=== PATIENT | female | born 1985 | race Caucasian/White ===

== ENCOUNTER 2017-12-24 11:58 | Emergency (ER) | payer MEDICARE ==
[~2017-12-24] VITALS: Ht 165.1 cm; Wt 64.0 kg
[2017-12-24] MEDS ORDERED: SODIUM CHLORIDE 0.9% 1,000 ML IV ONE (12:32)
[2017-12-24] MEDS ORDERED: MORPHINE SULFATE 4 MG/ML CPJ (NOT FOR IM USE) IV STA (12:32)
[2017-12-24] MEDS ORDERED: ONDANSETRON HCL 4MG/2ML VIAL IV STA (12:32)
[2017-12-24 13:10] LABS: BASOPHILS % 0.4 % (0.0-2.0); EOSINOPHILS % 1.9 % (0.0-5.0); HEMATOCRIT. 40.9 % (36.0-48.0); HEMOGLOBIN. 14.2 g/dL (12.0-16.0); LYMPHOCYTES % 16.5 % (20.0-50.0); MEAN CORPUSCULAR HEMOGLOBIN 31.1 pg (28.0-32.0); MEAN CORPUSCULAR VOLUME 89.2 fL (81.0-99.0); MEAN PLATELET VOLUME 9.9 fl (7.4-10.4); MONOCYTES % 6.3 % (2.0-8.0); NEUTROPHILS % 74.9 % (40.0-76.0); PLATELET 280 x1000/uL (130-400); RED BLOOD CELL COUNT 4.58 mill/uL (4.2-5.4); RED CELL DISTRIBUTION WIDTH 12.9 % (11.6-14.6)
[2017-12-24 13:16] LABS: D-DIMER 0.43 mg/L FEU (<0.50); PARTIAL THROMBOPLASTIN TIME 25.8 sec (23.4-31.0); PROTHROMBIN TIME 10.5 sec (9.4-11.6)
[2017-12-24 13:23] LABS: CHLORIDE 105 mEq/L (98-107); HCG SCREEN NEGATIVE
[2017-12-24 13:24] LABS: TROPONIN I < 0.02 ng/mL (0.00-0.04)
[2017-12-24] MEDS ORDERED: IOHEXOL-350 100 ML BOTTLE ONE (14:56)
[2017-12-24 15:16] LABS: CLARITY URINE CLEAR (CLEAR); COLOR URINE YELLOW (YELLOW); KETONES URINE NEGATIVE (NEGATIVE); LEUKOCYTE ESTERASE URINE NEGATIVE (NEGATIVE); NITRITE URINE NEGATIVE (NEGATIVE); OCCULT BLOOD URINE NEGATIVE (NEGATIVE); PH URINE 6.5 (4.5-8.0); PROTEIN URINE NEGATIVE (NEGATIVE); SPECIFIC GRAVITY URINE 1.016 (1.005-1.030); UROBILINOGEN URINE 0.2 E.U./dL (0.2-1.0)
[2017-12-24 15:31] LABS: *BARBITURATES SCREEN URINE NEGATIVE (NEGATIVE); *BENZODIAZEPINES SCREEN URINE NEGATIVE (NEGATIVE); *COCAINE SCREEN URINE NEGATIVE (NEGATIVE); METHADONE URINE SCREEN NEGATIVE (NEGATIVE); PHENCYCLIDINE URINE SCREEN NEGATIVE (NEGATIVE)
[2017-12-24 15:35] LABS: *AMPHETAMINES SCREEN URINE NEGATIVE (NEGATIVE); CANNABINOID URINE SCREEN NEGATIVE (NEGATIVE)
[2017-12-24 15:46] LABS: OPIATES URINE SCREEN PRESUMTIVE POSITIVE (NEGATIVE)
[2017-12-24 16:28] VITALS: BP 126/74
== END 2017-12-24 16:33 | disposition home or self-care (01) ==
LOC: ER 11:58
DX: B34.9 Viral infection, unspecified (principal); R07.9 Chest pain, unspecified
CPT/HCPCS: 36415; 71045; 71275; 80053; 80305; 81003; 83605; 83690; 83880; 84443; 84484; 84703; 85025; 85379; 85610; 85730; 93005; 96361; 96374; 96375; 99285; J2270; J2405; J7030; Q9967; Z7610

== ENCOUNTER 2018-03-21 16:10 | Emergency (ER) | payer MEDICARE ==
[~2018-03-21] VITALS: Ht 165.1 cm; Wt 64.0 kg
[2018-03-21 16:11] VITALS: BP 131/57
== END 2018-03-22 00:33 | disposition left against medical advice (07) ==
LOC: ER 16:50
DX: M54.89 Other dorsalgia (principal)
CPT/HCPCS: 99281

== ENCOUNTER 2018-11-20 22:44 | Emergency (ER) | payer MEDICARE ==
[~2018-11-20] VITALS: Ht 165.1 cm; Wt 64.0 kg
[2018-11-20] MEDS ORDERED: SODIUM CHLORIDE 0.9% 1,000 ML IV ONE (23:47)
[2018-11-20] MEDS ORDERED: KETOROLAC 30MG/ML VIAL IV STA (23:47)
[2018-11-20 23:50] VITALS: BP 123/66
[2018-11-21 00:26] LABS: HEMATOCRIT. 39.7 % (36.0-48.0); HEMOGLOBIN. 13.7 g/dL (12.0-16.0); MEAN CORPUSCULAR HEMOGLOBIN 30.8 pg (28.0-32.0); MEAN CORPUSCULAR VOLUME 89.5 fL (81.0-99.0); MEAN PLATELET VOLUME 9.6 fl (7.4-10.4); PLATELET 238 x1000/uL (130-400); RED BLOOD CELL COUNT 4.44 mill/uL (4.2-5.4); RED CELL DISTRIBUTION WIDTH 13.4 % (11.6-14.6)
[2018-11-21 00:32] LABS: CLARITY URINE CLEAR (CLEAR); COLOR URINE YELLOW (YELLOW); KETONES URINE NEGATIVE (NEGATIVE); LEUKOCYTE ESTERASE URINE NEGATIVE (NEGATIVE); NITRITE URINE NEGATIVE (NEGATIVE); OCCULT BLOOD URINE NEGATIVE (NEGATIVE); PH URINE 6.5 (4.5-8.0); PROTEIN URINE NEGATIVE (NEGATIVE); SPECIFIC GRAVITY URINE 1.004 (1.005-1.030); UROBILINOGEN URINE 0.2 E.U./dL (0.2-1.0)
[2018-11-21 00:32] LABS: CHLORIDE 106 mEq/L (98-107)
[2018-11-21] MEDS ORDERED: PREDNISONE 20MG TABLET PO ONE (01:00)
[2018-11-21 02:46] LABS: ATYPICAL LYMPHOCYTES 5; PLATELET ESTIMATE NORMAL
== END 2018-11-21 01:40 | disposition home or self-care (01) ==
LOC: ER 22:44
DX: M79.10 Myalgia, unspecified site (principal); B02.9 Zoster without complications; R51 Headache; R68.83 Chills (without fever); Z98.890 Other specified postprocedural states
CPT/HCPCS: 36415; 80053; 81003; 85025; 96374; 99283; J1885; J7030; J7512